=== PATIENT | male | born 2000 | race Hispanic/Latino ===

== ENCOUNTER 2021-12-28 16:27 | Emergency (ER) | payer SELFPAY ==
[2021-12-28] MEDS ORDERED: Lidocaine 1% (PF) 30 ML VIAL ONE (17:35)
[2021-12-28] MEDS ORDERED: Boostrix 0.5 ML (Tdap) VIAL ONE (17:36)
[2021-12-28] MEDS ORDERED: Lidocaine 1% PF 5 ML VIAL ONE (17:37)
[2021-12-28] MEDS ORDERED: Bacitracin 1 PK ONE (18:07)
== END 2021-12-28 18:20 | disposition home or self-care (01) ==
LOC: CSHERS 16:27
DX: S61.012A Laceration without foreign body of left thumb without damage to nail, initial encounter (principal); X58.XXXA Exposure to other specified factors, initial encounter
CPT/HCPCS: 12001; 90471; 90715; J2001

== ENCOUNTER 2022-01-12 15:13 | Emergency (ER) | payer SELFPAY | END 2022-01-12 16:30 | disposition home or self-care (01) | LOC: CSHERS 15:13 | DX: S61.012D Laceration without foreign body of left thumb without damage to nail, subsequent encounter (principal); W26.0XXD Contact with knife, subsequent encounter ==